=== PATIENT | male | born 1995 ===

== ENCOUNTER 2017-04-01 18:10 | Inpatient (IN) | payer BC, OTHER ==
[2017-04-01 19:16] LABS: BASO # 0.1 K/uL (0.0-0.2); BASO % 0.4 % (0.0-2.0); EOS # 0.1 K/uL (0.0-0.7); EOS % 0.6 % (0.0-4.0); HEMATOCRIT 47.7 % (35.0-51.0); LYMPH # 2.5 K/uL (1.0-4.3); LYMPH % 16.7 % (20.0-40.0); MEAN CELL VOLUME 92.1 fl (80.0-94.0); MEAN CORPUSCULAR HEMOGLOBIN 30.3 pg (27.0-31.0); MEAN CORPUSCULAR HGB CONC 32.9 g/dL (33.0-37.0); MEAN PLATELET VOLUME 8.9 fl (7.2-11.7); MONO # 1.5 K/uL (0.0-0.8); MONO % 9.8 % (0.0-10.0); NEUT # 10.8 K/uL (1.8-7.0); NEUT % 72.5 % (50.0-75.0); NRBC % 0.1 % (0.0-0.0); RED CELL DISTRIBUTION WIDTH 12.5 % (11.5-14.5); WHITE BLOOD COUNT 14.9 K/uL (4.8-10.8)
[2017-04-01 19:25] LABS: ALKALINE PHOSPHATASE 73 U/L (38-126); ALT/SGPT 49 U/L (21-72); AST/SGOT 22 U/L (17-59); BLOOD UREA NITROGEN 13 mg/dl (9-20); CALCIUM 9.5 mg/dL (8.4-10.2); CARBON DIOXIDE 29 mmol/L (22-30); CHLORIDE 99 mmol/L (98-107); GFR AFRICAN-AMERICAN > 60; GLUCOSE,RANDOM 91 mg/dL (75-110); POTASSIUM 3.5 MMOL/L (3.6-5.0); SODIUM 141 mmol/l (132-148); TOTAL PROTEIN 8.8 G/DL (6.3-8.2)
[2017-04-01 19:27] LABS: ALB/GLOB RATIO 1.3 (1.0-2.1)
[2017-04-01] MEDS ORDERED: Sodium Chloride 0.9% 50 ML IV ONE (19:44)
[2017-04-01] MEDS ORDERED: Iohexol 300 100 ML IJ ONE (19:44)
--- NOTE | 2017-04-01 20:10 | ED PDOC ---
HPI: Abdomen Time Seen by Provider: 04/01/17 18:44 Chief Complaint (Nursing): Abdominal Pain Chief Complaint (Provider): Right sided abdominal pain x 2 days History Per: Patient History/Exam Limitations: no limitations Onset/Duration Of Symptoms: Days Outside of [place] travel?: No Location Of Pain/Discomfort: RLQ Quality Of Discomfort: Dull Associated Symptoms: Nausea, Loss Of Appetite. denies: Fever, Chills Additional Complaint(s): Pt saw PMD today and was told to come to the ER for evaluation of RLQ pain. Pt reports only eating a banana. Past Medical History Reviewed: Historical Data, Nursing Documentation, Vital Signs Vital Signs: Last Vital Signs Temp 98.7 F 04/01/17 18:17 Pulse 96 H 04/01/17 18:17 Resp 18 04/01/17 18:17 BP 109/68 04/01/17 18:17 Pulse Ox 98 04/01/17 18:17 - Medical History PMH: No Chronic Diseases - Surgical History Surgical History: No Surg Hx - Family History Family History: States: No Known Family Hx - Living Arrangements Living Arrangements: With Family - Social History Current smoker - smoking cessation education provided: No - Allergies Allergies/Adverse Reactions: Allergies Allergy/AdvReac Type Severity Reaction Status Date / Time No Known Allergies Allergy Verified 04/01/17 18:16 Review of Systems ROS Statement: Except As Marked, All Systems Reviewed And Found Negative Constitutional: Negative for: Fever, Chills Gastrointestinal: Positive for: Nausea, Abdominal Pain Physical Exam - Reviewed Nursing Documentation Reviewed: Yes Vital Signs Reviewed: Yes - Physical Exam Appears: Positive for: Well, Non-toxic, No Acute Distress Head Exam: Positive for: ATRAUMATIC, NORMAL INSPECTION, NORMOCEPHALIC Skin: Positive for: Normal Color, Warm, DRY Eye Exam: Positive for: Normal appearance ENT: Positive for: Normal ENT Inspection Neck: Positive for: Normal, Painless ROM Cardiovascular/Chest: Positive for: Regular Rate, Rhythm Respiratory: Positive for: Normal Breath Sounds. Negative for: Accessory Muscle Use Gastrointestinal/Abdominal: Positive for: Bowel Sounds, Soft. Negative for: Normal Exam, Tenderness (RLQ tenderness ) Back: Positive for: Normal Inspection Extremity: Positive for: Normal ROM Neurologic/Psych: Positive for: Alert, Oriented - Laboratory Results Result Diagrams: 04/01/17 19:12 04/01/17 19:12 - ECG O2 Sat by Pulse Oximetry: 98 Medical Decision Making Medical Decision Making: Labs and CT pending. Disposition - Clinical Impression Clinical Impression: Abdominal pain - Patient ED Disposition Is Patient to be Admitted: Transfer of Care - Disposition Disposition: Transfer of Care Disposition Time: 20:10 Condition: GOOD
[2017-04-01] MEDS ORDERED: Sodium Chloride 0.9% 1,000 ML IV STA (20:43)
[2017-04-01] MEDS ORDERED: Piperacillin/Tazobact 3.375 GM in Sodium Chloride 0.9% 100 ML IVPB STA (20:43)
--- NOTE | 2017-04-01 21:18 | ED PDOC ---
- Laboratory Results Result Diagrams: 04/01/17 19:12 04/01/17 19:12 - ECG O2 Sat by Pulse Oximetry: 98 - Progress ED Course And Treament: 21yo M with RLQ pain pt with elevated WBC. PT pending Ct scan r/o appendicitis. Re-evaluation Time: 21:17 Condition: Improved (pt without complaints at this time. ) - Physician Consult Information Time Consulting Physican Contacted: 21:17 Outcome Of Conversation: neurosurgical physician assistant consulted-MD Saba resident with MD Familia general surgery. MD Haris made aware -pt PMD in [facility]. pt started on Zoysn, NPO and NS fluid bolus. Pt understands dx and plan. Medical Decision Making Medical Decision Making: Pt will be admitted for surgical consult for appendicitis. Disposition - Clinical Impression Clinical Impression: Appendicitis - POA Present On Arrival: None - Disposition Disposition: Admitted as In-Patient Disposition Time: 21:34 Condition: STABLE
--- NOTE | 2017-04-01 21:22 | CP.PCM.CON ---
History of Present Illness - History of Present Illness History of Present Illness: General Surgery Consult Note for Dr. Vieira Reason for Consult: Acute appendicitis 21M with no significant pMH presents to [facility] ED with complaint for RLQ abdominal pain. General surgery was consulted for acute appendicitis. Patient states that pain began 2 days ago on Friday. Patient had associated nausea at that time. Patient states he felt like he had a virus. He denies vomiting and diarrhea. Pain continued to get worse over the 2 days. Today, patient went to PMD who instructed him to come to the ED. Patient rates pain at worse as moderate, currently it is very mild. He describes it as constant discomfort in RLQ without radiation. Denies any exacerbating or alleviating factors. Denies fever/chills, cp , SOB, palpitations. PMH: denies Meds: denies Allergy: NKDA PSH: denies FH: unknown Social: denies tobacco/EtOH use; occasionally smokes marijuana Review of Systems - Review of Systems All systems: reviewed and no additional remarkable complaints except (abdominal pain, nausea) Past Patient History - Past Social History Smoking Status: Never Smoked - MUSCULOSKELETAL/RHEUMATOLOGICAL Hx Musculoskeletal Disorders: Yes - PSYCHIATRIC Hx Substance Use: No - SURGICAL HISTORY Hx Surgeries: Yes Other/Comment: SHOULDER SX Meds Allergies/Adverse Reactions: Allergies Allergy/AdvReac Type Severity Reaction Status Date / Time No Known Allergies Allergy Verified 04/02/17 00:48 - Medications Medications: Current Medications Sodium Chloride (Sodium Chloride 0.9%) 1,000 mls @ 1,000 mls/hr IV .Q1H STA Stop: 04/01/17 21:42 Last Admin: 04/01/17 21:01 Dose: 1,000 mls/hr Piperacillin Sod/Tazobactam (Sod 3.375 gm/ Sodium Chloride) 100 mls @ 100 mls/ hr IVPB STAT STA PRN Reason: Protocol Stop: 04/01/17 21:42 Physical Exam - Constitutional Appears: No Acute Distress - Head Exam Head Exam: ATRAUMATIC, NORMOCEPHALIC - Eye Exam Eye Exam: EOMI, Normal appearance Pupil Exam: PERRL - ENT Exam ENT Exam: Mucous Membranes Moist - Neck Exam Neck exam: Positive for: Full Rom - Respiratory Exam Respiratory Exam: NORMAL BREATHING PATTERN - Cardiovascular Exam Cardiovascular Exam: REGULAR RHYTHM - GI/Abdominal Exam GI & Abdominal Exam: Soft, Tenderness (RLQ). absent: Distended, Firm, Guarding , Rebound, Rigid Additional comments: (+) mcburney's point - Extremities Exam Extremities exam: Positive for: normal capillary refill, pedal pulses present. Negative for: calf tenderness - Back Exam Back exam: absent: CVA tenderness (L), CVA tenderness (R) - Neurological Exam Neurological exam: Alert, CN II-XII Intact, Oriented x3 - Psychiatric Exam Psychiatric exam: Normal Affect, Normal Mood - Skin Skin Exam: Dry, Intact, Normal Color, Warm Results - Vital Signs Recent Vital Signs: Last Vital Signs Temp 98.7 F 04/01/17 18:17 Pulse 96 H 04/01/17 18:17 Resp 18 04/01/17 18:17 BP 109/68 04/01/17 18:17 Pulse Ox 98 04/01/17 21:19 - Labs Result Diagrams: 04/01/17 19:12 04/01/17 19:12 Labs: Laboratory Results - last 24 hr 04/01/17 04/01/17 19:12 19:12 WBC 14.9 H RBC 5.18 Hgb 15.7 Hct 47.7 MCV 92.1 MCH 30.3 MCHC 32.9 L RDW 12.5 Plt Count 233 MPV 8.9 Neut % (Auto) 72.5 Lymph % (Auto) 16.7 L Dauphin % (Auto) 9.8 Eos % (Auto) 0.6 Baso % (Auto) 0.4 Neut # 10.8 H Lymph # 2.5 Dauphin # 1.5 H Eos # 0.1 Baso # 0.1 Sodium 141 Potassium 3.5 L Chloride 99 Carbon Dioxide 29 Anion Gap 17 BUN 13 Creatinine 1.1 Est GFR ( Amer) > 60 Est GFR (Non-Af Amer) > 60 Random Glucose 91 Calcium 9.5 Total Bilirubin 1.0 AST 22 ALT 49 Alkaline Phosphatase 73 Total Protein 8.8 H Albumin 4.9 Globulin 3.9 Albumin/Globulin Ratio 1.3 Assessment & Plan - Assessment and Plan (Free Text) Plan: 21 M with Acute appendicitis -NPO -IV fluids -IV abx -Analgesics/Anti-emetics PRN -Tentatively Plan for laparoscopic Appendectomy in OR Friday -Will Discuss with Dr. Familia Walter PGY1
[2017-04-01] MEDS: Sodium Chloride 0.9% 1,000 ML IV SCH (23:00)
[2017-04-02] MEDS ORDERED: Potassium Chloride 20 mEq/15 ml LIQ UD PO ONE (01:00)
[2017-04-02] MEDS: Piperacillin/Tazobact 3.375 GM in Sodium Chloride 0.9% 100 ML IVPB SCH ×4 (03:56→21:54)
[2017-04-02] MEDS: Sodium Chloride 0.9% 1,000 ML IV SCH ×2 (06:17→13:55)
--- NOTE | 2017-04-02 09:22 | CT ---
PROCEDURE: CT Abdomen and Pelvis with contrast HISTORY: RLQ pain COMPARISON: None. TECHNIQUE: Contrast dose: 95.1 mL Omnipaque 300 Radiation dose: Total exam DLP = 714.64 mGy-cm. This CT exam was performed using one or more of the following dose reduction techniques: Automated exposure control, adjustment of the mA and/or kV according to patient size, and/or use of iterative reconstruction technique. FINDINGS: LOWER THORAX: Unremarkable. LIVER: Unremarkable. No gross lesion or ductal dilatation. GALLBLADDER AND BILE DUCTS: Unremarkable. PANCREAS: Unremarkable. No gross lesion or ductal dilatation. SPLEEN: Unremarkable. ADRENALS: Unremarkable. No mass. KIDNEYS AND URETERS: Unremarkable. No hydronephrosis. No solid mass. VASCULATURE: Unremarkable. No aortic aneurysm. BOWEL: Unremarkable. No obstruction. No gross mural thickening. APPENDIX: Dilated appendix, contrast-enhancing characteristics of the thickened appendiceal wall indicative of acute appendicitis with right lower quadrant/ pelvic periappendiceal inflammatory change. PERITONEUM: Unremarkable. No free fluid. No free air. LYMPH NODES: Unremarkable. No enlarged lymph nodes. BLADDER: Unremarkable. REPRODUCTIVE: Unremarkable. BONES: No acute fracture. OTHER FINDINGS: None. IMPRESSION: CT manifestations of acute appendicitis without evidence of drainable collection, free fluid, free air or loculated/ drainable collection. Concordant results (preliminary interpretation) provided by [employer]. Procedure Completed: 19:53 Preliminary ([employer]) Report: Dictated and Authenticated: 20:34 Final Interpretation: 09:20 April 02, 2017.
[2017-04-02] MEDS ORDERED: Bupivacaine 0.5% Inj(30mL) ONE (13:02)
[2017-04-02] MEDS ORDERED: ceFAZolin IV 1 gm in Dextrose 0 GM/0 ML BAG IVPB ONE (13:02)
[2017-04-02] MEDS ORDERED: Lidocaine 1% Inj (20ml) ONE (13:02)
[2017-04-02] MEDS ORDERED: Propofol 10 mg/ml Inj (20 ML) ONE ×2 (13:04→16:34)
[2017-04-02] MEDS ORDERED: ePHEDrine 50 mg/ml Inj ONE (13:05)
[2017-04-02] MEDS ORDERED: Midazolam 2 MG/2 ML VIAL ONE ×2 (13:05→16:35)
[2017-04-02] MEDS ORDERED: Rocuronium 10 mg/ml (5 ml) ONE ×2 (13:05→16:36)
[2017-04-02] MEDS ORDERED: Succinylcholine 200 mg/10 ml Inj IV ONE ×2 (13:06→16:35)
[2017-04-02] MEDS ORDERED: Lidocaine 4% (Laryng-O-Jet) Kit MM ONE ×2 (13:06→16:37)
[2017-04-02] MEDS ORDERED: Phenylephrine 10 mg/ml Inj ONE (16:38)
[2017-04-02] MEDS ORDERED: Lactated Ringer's 1,000 ML IV ONE ×3 (16:42→19:13)
[2017-04-02] MEDS ORDERED: Piperacillin/Tazobact 3.375 gm Inj IVPB ONE (16:45)
[2017-04-02] MEDS ORDERED: Dexamethasone 4 mg/1 ml ONE (16:59)
[2017-04-02] MEDS ORDERED: Neostigmine Methylsulfate 2 MG/2 ML ML IV ONE (17:22)
[2017-04-02] MEDS ORDERED: Neostigmine Methylsulfate 3mg/3ml Syringe IV ONE (17:22)
[2017-04-02] MEDS ORDERED: Bupivacaine 0.5% 50 ML IJ ONE ×2 (17:29→17:43)
[2017-04-02] MEDS ORDERED: HYDROmorphone 0.5 mg/0.5 ml ISec IVP PRN (17:56)
[2017-04-02] MEDS ORDERED: Lactated Ringer's 1,000 ML IV SCH (18:00)
[2017-04-02] MEDS ORDERED: Oxycodone/Acetaminophen 5/325 mg Tab PO PRN (18:01)
--- NOTE | 2017-04-02 18:01 | PCM.SURG1 ---
Surgeon's Initial Post Op Note - Surgeon's Notes Surgeon: Dr. Barbosa Consumer Lender: Dr. Massey PGY2, Dr. Keen PGY1 Type of Anesthesia: General Endo Pre-Operative Diagnosis: acute appendicitis Operative Findings: see dictation Post-Operative Diagnosis: same Operation Performed: laparoscopic appendectomy Specimen/Specimens Removed: appendix Estimated Blood Loss: EBL {In ML}: 5 Blood Products Given: N/A Drains Used: No Drains Post-Op Condition: Good Date of Surgery/Procedure: 04/02/17 Time of Surgery/Procedure: 16:45
[2017-04-02 18:26] LABS: BLOOD UREA NITROGEN 13 mg/dl (9-20); CALCIUM 8.1 mg/dL (8.4-10.2); CARBON DIOXIDE 26 mmol/L (22-30); CHLORIDE 108 mmol/L (98-107); GFR AFRICAN-AMERICAN > 60; GLUCOSE,RANDOM 86 mg/dL (75-110); MAGNESIUM 1.7 MG/DL (1.6-2.3); PHOSPHOROUS 4.7 mg/dl (2.5-4.5); SODIUM 140 mmol/l (132-148)
[2017-04-02] MEDS: HYDROmorphone 0.5 mg/0.5 ml ISec IVP PRN (20:23)
[2017-04-03 00:24] LABS: BLOOD UREA NITROGEN 14 mg/dl (9-20); CALCIUM 8.9 mg/dL (8.4-10.2); CARBON DIOXIDE 25 mmol/L (22-30); CHLORIDE 102 mmol/L (98-107); GFR AFRICAN-AMERICAN > 60; GLUCOSE,RANDOM 192 mg/dL (75-110); POTASSIUM 3.8 MMOL/L (3.6-5.0); SODIUM 138 mmol/l (132-148)
--- NOTE | 2017-04-03 00:47 | CP.PCM.HP ---
History of Present Illness - History of Present Illness History of Present Illness: CC: Abdominal Pain History of Patient: A 21 M with no significant PMH presents to [facility] ED with complaint for RLQ abdominal pain 02/11 which started about epigastric and umbilical area, and then shifted to RLQ. Patient states that pain began 2days ago on Friday. Patient had associated nausea at that time. Patient states he felt like he had a virus. He denies vomiting and diarrhea. Pain continued to get worse over the 2 days. Today, patient went to PMD who instructed him to come to the ED. Denies any exacerbating or alleviating factors. Denies fever/chills, CP, SOB, palpitations. Present on Admission - Present on Admission Any Indicators Present on Admission: No Review of Systems - Review of Systems All systems: reviewed and no additional remarkable complaints except - Gastrointestinal Gastrointestinal: As Per HPI, Abdominal Pain Past Patient History - Past Medical History & Family History Past Medical History?: No Past Family History: Reviewed and not pertinent - Past Social History Smoking Status: Never Smoked Alcohol: None Drugs: Denies - CARDIAC Hx Cardiac Disorders: No - PULMONARY Hx Respiratory Disorders: No - NEUROLOGICAL Hx Neurological Disorder: No - HEENT Hx HEENT Problems: No - RENAL Hx Chronic Kidney Disease: No - ENDOCRINE/METABOLIC Hx Endocrine Disorders: No - HEMATOLOGICAL/ONCOLOGICAL Hx Blood Disorders: No - INTEGUMENTARY Hx Dermatological Problems: No - MUSCULOSKELETAL/RHEUMATOLOGICAL Hx Musculoskeletal Disorders: Yes - GASTROINTESTINAL Hx Gastrointestinal Disorders: No - GENITOURINARY/GYNECOLOGICAL Hx Genitourinary Disorders: No - PSYCHIATRIC Hx Substance Use: No - SURGICAL HISTORY Hx Surgeries: Yes Other/Comment: SHOULDER SX - ANESTHESIA Hx Anesthesia: Yes Hx Anesthesia Reactions: No Meds Home Medications: Home Medication List Medication Instructions Recorded Confirmed Type Propranolol [Inderal] 10 mg PO TID #90 tab 04/03/17 Rx Allergies/Adverse Reactions: Allergies Allergy/AdvReac Type Severity Reaction Status Date / Time No Known Allergies Allergy Verified 04/02/17 00:48 Physical Exam - Constitutional Appears: Well, In Acute Distress - Head Exam Head Exam: ATRAUMATIC, NORMAL INSPECTION, NORMOCEPHALIC - Eye Exam Eye Exam: EOMI, Normal appearance, PERRL Pupil Exam: NORMAL ACCOMODATION, PERRL - ENT Exam ENT Exam: Mucous Membranes Moist, Normal Exam - Neck Exam Neck exam: Positive for: Full Rom, Normal Inspection - Respiratory Exam Respiratory Exam: Clear to Auscultation Bilateral, NORMAL BREATHING PATTERN. absent: Decreased Breath Sounds, Rales - Cardiovascular Exam Cardiovascular Exam: REGULAR RHYTHM, +S1, +S2 - GI/Abdominal Exam GI & Abdominal Exam: Guarding, Normal Bowel Sounds, Rebound, Tenderness - Extremities Exam Extremities exam: Positive for: full ROM, normal capillary refill, normal inspection - Back Exam Back exam: FULL ROM, NORMAL INSPECTION. absent: CVA tenderness (L), CVA tenderness (R) - Neurological Exam Neurological exam: Alert, CN II-XII Intact, Normal Gait, Oriented x3, Reflexes Normal - Psychiatric Exam Psychiatric exam: Normal Affect, Normal Mood - Skin Skin Exam: Dry, Intact, Normal Color, Warm Results - Vital Signs Recent Vital Signs: Last Vital Signs Temp 98.4 F 04/02/17 23:44 Pulse 112 H 04/02/17 23:44 Resp 18 04/02/17 23:44 BP 133/79 04/02/17 23:44 Pulse Ox 98 04/02/17 23:44 - Labs Result Diagrams: 04/03/17 07:15 04/03/17 00:06 Labs: Laboratory Results - last 24 hr 04/02/17 04/02/17 04/03/17 11:46 18:00 00:06 PT 13.4 H INR 1.2 APTT 27.0 Sodium 140 138 Potassium 4.0 3.8 Chloride 108 H 102 Carbon Dioxide 26 25 Anion Gap 10 15 BUN 13 14 Creatinine 1.0 1.1 Est GFR ( Amer) > 60 > 60 Est GFR (Non-Af Amer) > 60 > 60 Random Glucose 86 192 H Calcium 8.1 L 8.9 Phosphorus 4.7 H Magnesium 1.7 Troponin I < 0.0120 - Imaging and Cardiology CT abdomen/Pelvis: Status: Report reviewed by me Additional comment: IMPRESSION: CT manifestations of acute appendicitis without evidence of drainable collection , free fluid, free air or loculated/ drainable collection. Assessment & Plan (1) Acute appendicitis Assessment and Plan: NPO IVF IV Zosyn IV Pain Medication PRN Zofran PRN Surgery Consulted Medically Cleared for the surgery D/w the Patient and his mother in Detail. Status: Acute Priority: High
[2017-04-03 00:54] LABS: THYROID STIMULATING HORMONE 0.15 mIU/ML (0.46-4.68)
[2017-04-03] MEDS: HYDROmorphone 0.5 mg/0.5 ml ISec IVP PRN (02:22)
[2017-04-03] MEDS: Piperacillin/Tazobact 3.375 GM in Sodium Chloride 0.9% 100 ML IVPB SCH ×3 (04:45→15:38)
[2017-04-03 06:10] LABS: MAGNESIUM 1.8 MG/DL (1.6-2.3); PHOSPHOROUS 4.7 mg/dl (2.5-4.5)
[2017-04-03 06:32] LABS: T4 7.43 ug/dl (5.5-11.0)
[2017-04-03 07:18] LABS: HEMATOCRIT 39.3 % (35.0-51.0); MEAN CELL VOLUME 90.5 fl (80.0-94.0); MEAN CORPUSCULAR HEMOGLOBIN 30.8 pg (27.0-31.0); RED CELL DISTRIBUTION WIDTH 12.2 % (11.5-14.5)
--- NOTE | 2017-04-03 07:42 | CP.PCM.PN ---
Subjective - Date & Time of Evaluation Date of Evaluation: 04/03/17 Time of Evaluation: 07:00 - Subjective Subjective: General Surgery Dr. Barbosa Pt S&E @bedside. Pt underwent laparoscopic appendectomy yesterday. Pt tolerated the procedure well. During the case, pt developed PVC. Pt transferred to Tele post-op for monitoring. Overnight pt had Bi- and trigeminy on monitor. Pt started on Propanolol by PMD. Pt has no complaints this AM. pain well controlled. denies CP, SOB, palpitations, F/C, N/V. tolerating regular diet. Objective - Vital Signs/Intake and Output Vital Signs (last 24 hours): Temp Pulse Resp BP Pulse Ox 98.2 F 62 18 132/78 98 04/03/17 04:58 04/03/17 04:58 04/03/17 04:58 04/03/17 04:58 04/03/17 04:58 Intake and Output: 04/03/17 04/03/17 06:59 18:59 Intake Total 100 Balance 100 - Medications Medications: Current Medications Acetaminophen (Tylenol 325mg Tab) 650 mg PO Q6 PRN PRN Reason: Fever >100.4 F Hydromorphone HCl (Dilaudid) 0.5 mg IVP Q4 PRN PRN Reason: Pain, severe (8-10) Last Admin: 04/03/17 02:22 Dose: 0.5 mg Piperacillin Sod/Tazobactam (Sod 3.375 gm/ Sodium Chloride) 100 mls @ 100 mls/ hr IVPB Q6H KAMLA PRN Reason: Protocol Last Admin: 04/03/17 04:45 Dose: 100 mls/hr Lactated Ringer's (Lactated Ringer's) 1,000 mls @ 100 mls/hr IV .Q10H [facility] Last Admin: 04/03/17 04:48 Dose: 100 mls/hr Ondansetron HCl (Zofran Inj) 4 mg IVP Q6 PRN PRN Reason: Nausea/Vomiting Last Admin: 04/01/17 23:21 Dose: 4 mg Oxycodone/Acetaminophen (Percocet 5/325 Mg Tab) 1 tab PO Q4 PRN PRN Reason: Pain, moderate (4-7) Stop: 04/05/17 18:02 Propranolol HCl (Inderal) 10 mg PO TID [facility] Last Admin: 04/03/17 02:54 Dose: 10 mg - Labs Labs: 04/03/17 07:15 04/03/17 00:06 PT 13.4 Seconds (9.8-13.1) H 04/02/17 11:46 INR 1.2 (0.9-1.2) 04/02/17 11:46 APTT 27.0 Seconds (25.6-37.1) 04/02/17 11:46 - Constitutional Appears: Non-toxic, No Acute Distress - Head Exam Head Exam: NORMAL INSPECTION - Eye Exam Eye Exam: Normal appearance - ENT Exam ENT Exam: Mucous Membranes Moist - Respiratory Exam Respiratory Exam: NORMAL BREATHING PATTERN. absent: Accessory Muscle Use, Respiratory Distress - Cardiovascular Exam Cardiovascular Exam: absent: Bradycardia, Tachycardia - GI/Abdominal Exam GI & Abdominal Exam: Soft, Tenderness (nitin-incisional TTP). absent: Firm, Guarding, Rigid, Rebound Additional comments: dressings c/d/i - Extremities Exam Extremities Exam: Normal Inspection - Neurological Exam Neurological Exam: Alert, Awake, Oriented x3 - Psychiatric Exam Psychiatric exam: Normal Affect, Normal Mood - Skin Skin Exam: Dry, Normal Color, Warm Assessment and Plan - Assessment and Plan (Free Text) Assessment: 21 y/o M POD#1 s/p lap appy - improved leukocytosis - cont pain management - ADAT - monitor vitals - encourage OOB to chair/Amb/IS use - pt cleared for discharge from surgical standpoint Pt discussed w/ Dr. Familia Massey DO PGY2
--- NOTE | 2017-04-03 10:02 | CP.PCM.CON ---
History of Present Illness - History of Present Illness History of Present Illness: This 21-year-old man came to the emergency room complaining of severe right lower quadrant pain accompanied by nausea and vomiting. He was found to have acute appendicitis and underwent a laparoscopy appendectomy. Subsequently he was found to have premature ventricular beats in a trigeminal manner and this consultation was requested. The patient was seen on the day following his surgery and was found to be sitting in a chair without any discomfort and afebrile. The patient denied any prior cardiac illness though remembers his primary care physician mentioning a premature beat. The patient has participated in gym activities during school years and even now plays basketball without any difficulty. He is not a smoker and denies any recreational use of drugs. Has never been hospitalized and denies any palpitations or sudden shortness of breath or chest pain. He has never experienced syncopal or near-syncopal episodes. There is no significant family history. He is not on any medications. Physical examination shows a young man alert awake and coherent. Afebrile. Sitting up in a chair and can carry on conversation. The pulse rate of 64 bpm and occasional premature beats were identified. His blood pressure 104/70 mmHg. His jugular venous pressure was not elevated and there was no edema over his lower extremity. Pedal pulses were well felt. There were no carotid bruits. His extremities are warm and his nailbeds are pink. First and second heart sounds were normal. There was no gallop and there were no rales and there were no murmurs. His electrocardiogram showed sinus rhythm with a QRS duration of 100 ms which is within normal limits area isolated premature ventricular beats were detected otherwise the EKG was normal. Review of telemetry reveals occasional periods of ventricular bigeminy or trigeminy. No repetitive ventricular ectopy was detected. Impression: Isolated premature ventricular beats in the patient with recent appendectomy. In absence of any structural heart disease this arrhythmia has a benign significance and no further intervention is recommended. Past Patient History - Past Medical History & Family History Past Medical History?: No - Past Social History Smoking Status: Never Smoked - CARDIAC Hx Cardiac Disorders: No - PULMONARY Hx Respiratory Disorders: No - NEUROLOGICAL Hx Neurological Disorder: No - HEENT Hx HEENT Problems: No - RENAL Hx Chronic Kidney Disease: No - ENDOCRINE/METABOLIC Hx Endocrine Disorders: No - HEMATOLOGICAL/ONCOLOGICAL Hx Blood Disorders: No - INTEGUMENTARY Hx Dermatological Problems: No - MUSCULOSKELETAL/RHEUMATOLOGICAL Hx Musculoskeletal Disorders: Yes - GASTROINTESTINAL Hx Gastrointestinal Disorders: No - GENITOURINARY/GYNECOLOGICAL Hx Genitourinary Disorders: No - PSYCHIATRIC Hx Substance Use: No - SURGICAL HISTORY Hx Surgeries: Yes Other/Comment: SHOULDER SX - ANESTHESIA Hx Anesthesia: Yes Hx Anesthesia Reactions: No Meds Allergies/Adverse Reactions: Allergies Allergy/AdvReac Type Severity Reaction Status Date / Time No Known Allergies Allergy Verified 04/02/17 00:48 - Medications Medications: Current Medications Acetaminophen (Tylenol 325mg Tab) 650 mg PO Q6 PRN PRN Reason: Fever >100.4 F Hydromorphone HCl (Dilaudid) 0.5 mg IVP Q4 PRN PRN Reason: Pain, severe (8-10) Last Admin: 04/03/17 02:22 Dose: 0.5 mg Piperacillin Sod/Tazobactam (Sod 3.375 gm/ Sodium Chloride) 100 mls @ 100 mls/ hr IVPB Q6H KAMLA PRN Reason: Protocol Last Admin: 04/03/17 08:57 Dose: 100 mls/hr Lactated Ringer's (Lactated Ringer's) 1,000 mls @ 100 mls/hr IV .Q10H [facility] Last Admin: 04/03/17 04:48 Dose: 100 mls/hr Ondansetron HCl (Zofran Inj) 4 mg IVP Q6 PRN PRN Reason: Nausea/Vomiting Last Admin: 04/01/17 23:21 Dose: 4 mg Oxycodone/Acetaminophen (Percocet 5/325 Mg Tab) 1 tab PO Q4 PRN PRN Reason: Pain, moderate (4-7) Stop: 04/05/17 18:02 Propranolol HCl (Inderal) 10 mg PO TID [facility] Last Admin: 04/03/17 08:57 Dose: 10 mg Results - Vital Signs Recent Vital Signs: Last Vital Signs Temp 97.5 F L 04/03/17 08:00 Pulse 62 04/03/17 08:57 Resp 18 04/03/17 08:00 BP 132/78 04/03/17 08:57 Pulse Ox 98 04/03/17 08:00 - Labs Result Diagrams: 04/03/17 07:15 04/03/17 00:06 Labs: Laboratory Results - last 24 hr 04/02/17 04/02/1717 11:46 18:00 00:06 WBC RBC Hgb Hct MCV MCH MCHC RDW Plt Count PT 13.4 H INR 1.2 APTT 27.0 Sodium 140 138 Potassium 4.0 3.8 Chloride 108 H 102 Carbon Dioxide 26 25 Anion Gap 10 15 BUN 13 14 Creatinine 1.0 1.1 Est GFR ( Amer) > 60 > 60 Est GFR (Non-Af Amer) > 60 > 60 Random Glucose 86 192 H Calcium 8.1 L 8.9 Phosphorus 4.7 H Magnesium 1.7 Troponin I < 0.0120 Free T4 Thyroxine (T4) Total T3 TSH 3rd Generation 0.15 L 04/03/17 04/03/17 04/03/17 05:20 05:20 07:15 WBC 12.0 H RBC 4.34 L Hgb 13.4 D Hct 39.3 MCV 90.5 MCH 30.8 MCHC 34.0 RDW 12.2 Plt Count 207 PT INR APTT Sodium Potassium Chloride Carbon Dioxide Anion Gap BUN Creatinine Est GFR ( Amer) Est GFR (Non-Af Amer) Random Glucose Calcium Phosphorus 4.7 H Magnesium 1.8 Troponin I Free T4 1.70 Thyroxine (T4) 7.43 Total T3 0.798 L TSH 3rd Generation
--- NOTE | 2017-04-03 10:44 | CARD ---
APPROVED REPORT EKG Measurement Heart [id number] <Conclusion> Sinus tachycardia with occasional premature ventricular complexes Incomplete right bundle branch block Borderline ECG
[2017-04-03 15:56] VITALS: BP 138/80; PULSE 80; RESP 20; TEMP 97.9; O2SAT 98
--- NOTE | 2017-04-04 00:18 | CP.PCM.DIS ---
Provider - Provider Date of Admission: 04/01/17 21:20 Attending physician: Lorenzo Griffin MD Time Spent in preparation of Discharge (in minutes): 35 Diagnosis - Discharge Diagnosis (1) Premature ventricular complex Status: Acute (2) Low TSH level Status: Acute Hospital Course - Lab Results Lab Results: Micro Results 04/01/17 21:32 Blood Blood Culture - Preliminary NO GROWTH AFTER 48 HOURS 04/01/17 19:00 Blood Blood Culture - Preliminary NO GROWTH AFTER 48 HOURS Most Recent Lab Values WBC 12.0 K/uL (4.8-10.8) H 04/03/17 07:15 RBC 4.34 Mil/uL (4.40-5.90) L 04/03/17 07:15 Hgb 13.4 g/dL (12.0-18.0) D 04/03/17 07:15 Hct 39.3 % (35.0-51.0) 04/03/17 07:15 MCV 90.5 fl (80.0-94.0) 04/03/17 07:15 MCH 30.8 pg (27.0-31.0) 04/03/17 07:15 MCHC 34.0 g/dL (33.0-37.0) 04/03/17 07:15 RDW 12.2 % (11.5-14.5) 04/03/17 07:15 Plt Count 207 K/uL (130-400) 04/03/17 07:15 MPV 8.9 fl (7.2-11.7) 04/01/17 19:12 Neut % (Auto) 72.5 % (50.0-75.0) 04/01/17 19:12 Lymph % (Auto) 16.7 % (20.0-40.0) L 04/01/17 19:12 [place] % (Auto) 9.8 % (0.0-10.0) 04/01/17 19:12 Eos % (Auto) 0.6 % (0.0-4.0) 04/01/17 19:12 Baso % (Auto) 0.4 % (0.0-2.0) 04/01/17 19:12 Neut # 10.8 K/uL (1.8-7.0) H 04/01/17 19:12 Lymph # 2.5 K/uL (1.0-4.3) 04/01/17 19:12 [place] # 1.5 K/uL (0.0-0.8) H 04/01/17 19:12 Eos # 0.1 K/uL (0.0-0.7) 04/01/17 19:12 Baso # 0.1 K/uL (0.0-0.2) 04/01/17 19:12 PT 13.4 Seconds (9.8-13.1) H 04/02/17 11:46 INR 1.2 (0.9-1.2) 04/02/17 11:46 APTT 27.0 Seconds (25.6-37.1) 04/02/17 11:46 Sodium 138 mmol/l (132-148) 04/03/17 00:06 Potassium 3.8 MMOL/L (3.6-5.0) 04/03/17 00:06 Chloride 102 mmol/L (98-107) 04/03/17 00:06 Carbon Dioxide 25 mmol/L (22-30) 04/03/17 00:06 Anion Gap 15 (10-20) 04/03/17 00:06 BUN 14 mg/dl (9-20) 04/03/17 00:06 Creatinine 1.1 mg/dl (0.8-1.5) 04/03/17 00:06 Est GFR ( Amer) > 60 04/03/17 00:06 Est GFR (Non-Af Amer) > 60 04/03/17 00:06 Random Glucose 192 mg/dL (75-110) H 04/03/17 00:06 Calcium 8.9 mg/dL (8.4-10.2) 04/03/17 00:06 Phosphorus 4.7 mg/dl (2.5-4.5) H 04/03/17 05:20 Magnesium 1.8 MG/DL (1.6-2.3) 04/03/17 05:20 Total Bilirubin 1.0 mg/dl (0.2-1.3) 04/01/17 19:12 AST 22 U/L (17-59) 04/01/17 19:12 ALT 49 U/L (21-72) 04/01/17 19:12 Alkaline Phosphatase 73 U/L (38-126) 04/01/17 19:12 Troponin I < 0.0120 ng/mL (0.00-0.120) 04/03/17 00:06 Total Protein 8.8 G/DL (6.3-8.2) H 04/01/17 19:12 Albumin 4.9 g/dL (3.5-5.0) 04/01/17 19:12 Globulin 3.9 gm/dL (2.2-3.9) 04/01/17 19:12 Albumin/Globulin Ratio 1.3 (1.0-2.1) 04/01/17 19:12 Free T4 1.70 ng/dL (0.78-2.19) 04/03/17 05:20 Thyroxine (T4) 7.43 ug/dl (5.5-11.0) 04/03/17 05:20 Total T3 0.798 nmol/L (1.49-2.60) L 04/03/17 05:20 TSH 3rd Generation 0.35 mIU/ML (0.46-4.68) L 04/03/17 16:09 - Hospital Course Hospital Course: S/P Appendectomy after Dx: Acute Appendicitis. 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 Also for the work up for Tachycardia, patient was found to have Low TSH. PAtient will be d/c on Propranolol and will do Repeat TSH in 4Weeks. Discharge Exam - Head Exam Head Exam: ATRAUMATIC, NORMAL INSPECTION, NORMOCEPHALIC - Eye Exam Eye Exam: EOMI, Normal appearance, PERRL Pupil Exam: NORMAL ACCOMODATION, PERRL - ENT Exam ENT Exam: Mucous Membranes Moist - Neck Exam Neck exam: Full Rom, Normal Inspection - Respiratory Exam Respiratory Exam: Clear to PA & Lateral, NORMAL BREATHING PATTERN - Cardiovascular Exam Cardiovascular Exam: REGULAR RHYTHM, +S1, +S2 - GI/Abdominal Exam GI & Abdominal Exam: Normal Bowel Sounds, Soft - Extremities Exam Extremities exam: full ROM, normal capillary refill, normal inspection - Back Exam Back exam: FULL ROM, NORMAL INSPECTION. absent: CVA tenderness (L), CVA tenderness (R) - Neurological Exam Neurological exam: Alert, CN II-XII Intact, Normal Gait, Oriented x3, Reflexes Normal - Psychiatric Exam Psychiatric exam: Normal Affect, Normal Mood - Skin Skin Exam: Dry, Intact, Normal Color, Warm Discharge Plan - Discharge Medications Prescriptions: Propranolol [Inderal] 10 mg PO TID #90 tab - Follow Up Plan Condition: STABLE Disposition: HOME/ ROUTINE Instructions: Appendicitis (GEN), Abdominal Pain (ED) Additional Instructions: follow up with Dr. Griffin in 4 weeks, Referrals: Lorenzo Griffin MD [Staff Provider] -
--- NOTE | 2017-04-11 16:55 | OP ---
PROCEDURE DATE: 04/01/2017 PREOPERATIVE DIAGNOSIS: Appendicitis. POSTOPERATIVE DIAGNOSIS: Appendicitis. PROCEDURE: Appendectomy. DESCRIPTION OF PROCEDURE: In the operating room, patient was identified by name, name of procedure, laterality, and my kary. The patient having been intubated, the abdomen having been prepped and having had successful time out after awaiting the appropriate fleet of time for the alcohol. Laparoscopy was performed with the supraumbilical incision with the Veress needled followed by the Visiport. The abdomen was entered and there was nothing untoward. The tip of the appendix greatly seemed to be inflamed. A suprapubic and a left lower quadrant 5 were placed. Drawing up on the tip of the appendix, the mesentery was serially identified, dissected and taken with Harmonic scalpel careful to avoid damage from the tip or the side. This brought the appendix upon a very nice space. The base was taken a little bit of the cecum with the blue load for Endo OPAL. The appendix was placed in a bag and removed. The abdomen was irrigated and dried. The incisions were closed with an exit stitch of 2-0 Vicryl on a needle in a mattress. Wounds were injected with Marcaine. Incisions were closed with subcuticular stitches, and the patient taken to recovery room in good condition without issue. Reinaldo Barbosa MD
== END 2017-04-03 18:45 | disposition home or self-care (01) | DRG 343 ==
LOC: H.ER 18:10 → H.ERHOLD 21:20 → H.PEDS 22:17 → H.TEL 04-02 19:49
PROVIDERS: ADMIT Internal Medicine; ATTEND Internal Medicine
PROC: 0DTJ4ZZ Resection of Appendix, Percutaneous Endoscopic Approach (ICD-10-PCS; principal; 2017-04-01)
DX: K35.80 Unspecified acute appendicitis (principal); I49.3 Ventricular premature depolarization; R94.6 Abnormal results of thyroid function studies